=== PATIENT | female | born 1995 | race Caucasian/White ===

== ENCOUNTER 2023-06-22 18:49 | Inpatient (IN) | payer OTHER, BC ==
[2023-06-23] MEDS ORDERED: ePHEDrine 50 MG/ML SDV IVPUSH PRN ×2 (02:13)
[2023-06-23] MEDS ORDERED: Phenylephrine HCl 0.5 MG/5 ML AMP IVPUSH PRN (02:13)
[2023-06-23] MEDS ORDERED: Ropivacaine HCl/PF 400 MG in Premix Bag 1 BAG EPIDUR SCH (02:15)
[2023-06-23] MEDS ORDERED: Tranexamic Acid IN NACL,ISO-OS 1,000 MG in Premix Bag 1 BAG IV PRN ×4 (04:42→12:38)
[2023-06-23] MEDS ORDERED: Ondansetron 4 MG/2 ML SDV IVPUSH PRN (04:42)
[2023-06-23] MEDS ORDERED: Nalbuphine 10 MG/0.5 ML Syringe IVPUSH PRN (04:42)
[2023-06-23] MEDS ORDERED: Water For Irrigation,Sterile 1,000 ML Container IRR PRN (04:42)
[2023-06-23] MEDS ORDERED: Lidocaine 1% 50 ML MDV INJECT PRN (04:42)
[2023-06-23] MEDS ORDERED: Sodium Chloride 0.9% 20 ML SDV IV PRN (04:42)
[2023-06-23] MEDS ORDERED: Methylergonovine 0.2 MG/1 ML Amp IM PRN ×2 (04:42→12:38)
[2023-06-23] MEDS ORDERED: Carboprost Tromethamine 250 MCG/1 mL Vial IM PRN (04:42)
[2023-06-23] MEDS ORDERED: Misoprostol 200 MCG Tab PO PRN (04:42)
[2023-06-23] MEDS ORDERED: Sodium Chloride 0.9% 10 ML Syringe FLUSH PRN (04:42)
[2023-06-23] MEDS ORDERED: Sodium Chloride 0.9% 2.5 ML Syringe FLUSH PRN (04:42)
[2023-06-23] MEDS ORDERED: Oxytocin/0.9 % Sodium Chloride 30 UNIT/500 ML BAG IV SCH ×2 (04:45→11:00)
[2023-06-23 05:18] LABS: HEMATOCRIT 36.3 % (37.0-47.0); HEMOGLOBIN 12.6 g/dL (12.0-16.0); MEAN CORPUSCULAR HEMOGLOBIN 30.7 pg (28.0-32.0); MEAN CORPUSCULAR HGB CONC 34.7 g/dL (32.0-36.0); MEAN CORPUSCULAR VOLUME 88.5 fL (83.0-99.0); MEAN PLATELET VOLUME 12.1 fL (9.4-12.3); PLATELET COUNT,PLT 195 K/uL (150-400); WHITE BLOOD CELL COUNT,WBC 12.85 K/uL (3.9-11.3)
[2023-06-23] MEDS: Lactated Ringers 1,000 ML IV SCH ×2 (06:17→07:18)
[2023-06-23] MEDS ORDERED: dexmedeTOMIDine HCl 200 MCG/2 ML SDV ONE (07:18)
[2023-06-23] MEDS ORDERED: Phenylephrine HCl 0.5 MG/5 ML AMP ONE (07:18)
[2023-06-23] MEDS ORDERED: Docusate Sodium 100 MG Cap PO PRN (12:38)
[2023-06-23] MEDS ORDERED: Lanolin 100% Cream 7 GM Tube TOP PRN (12:38)
[2023-06-23] MEDS ORDERED: Witch Hazel Medicated Pads 40/Jar TOP PRN (12:38)
[2023-06-23] MEDS ORDERED: Acetaminophen 500 MG Tab PO PRN (12:38)
[2023-06-23] MEDS ORDERED: Ibuprofen 800 MG Tab PO PRN (12:38)
[2023-06-23] MEDS ORDERED: Benzocaine/Menthol 20%-0.5% Spray 78 GM Cannister TOP PRN (12:38)
[2023-06-23 15:08] LABS: PH,UMBILICAL ARTERIAL 7.245 (7.18-7.38); PH,UMBILICAL VENOUS 7.299 (7.25-7.45)
[2023-06-24 06:44] LABS: HEMATOCRIT 37.1 % (37.0-47.0); HEMOGLOBIN 12.8 g/dL (12.0-16.0)
[2023-06-24 07:01] LABS: CALCIUM 8.8 mg/dL (8.5-10.1); CARBON DIOXIDE,CO2 21.9 mmol/L (21.0-32.0); CREATININE 0.8 mg/dL (0.6-1.0); EST CRCL DRUG DOSING (CG) 88.15 mL/min
[2023-06-25 08:22] VITALS: BP 117/63; PULSE 81
== END 2023-06-25 14:40 | disposition home or self-care (01) | DRG 807 ==
LOC: MW.OB 18:49 → MW.OBCHECK 18:49 → MW.OB 21:00 → MW.OBCHECK 21:00 → OBSVTOIN 06-23 12:39 → MW.OB 06-23 16:56
PROVIDERS: ADMIT Obstetrics & Gynecology; ATTEND Obstetrics & Gynecology
PROC: 10E0XZZ Delivery of Products of Conception, External Approach (ICD-10-PCS; principal; 2023-06-23)
PROC: 3E033VJ Introduction of Other Hormone into Peripheral Vein, Percutaneous Approach (ICD-10-PCS; 2023-06-23)
DX: O42.013 Preterm premature rupture of membranes, onset of labor within 24 hours of rupture, third trimester (principal); Z37.0 Single live birth; O24.410 Gestational diabetes mellitus in pregnancy, diet controlled; Z3A.36 36 weeks gestation of pregnancy
CPT/HCPCS: 01967; 36415; 51702; 59025; 59409; 80048; 82803; 84112; 85014; 85018; 85027; 86850; 86900; 86901; A9270-GY; J2300; J2371; J2590; J2795; J3490; J7120